=== PATIENT | female | born 1950 | race Caucasian/White ===

== ENCOUNTER 2019-12-15 20:12 | Emergency (ER) | payer MEDICARE, OTHER ==
[2019-12-15 20:21] VITALS: TEMP 98
[2019-12-15] MEDS ORDERED: DIPH,PERTUS(ACELL)TETVAC-LF 0.5 ML VIAL IM ONE (20:58)
--- NOTE | 2019-12-15 21:14 | CT ---
EXAMINATION TYPE: CT brain leydi wo con DATE OF EXAM: 12/15/2019 COMPARISON: None HISTORY: fall CT DLP: 1275.3 mGycm, Automated exposure control for dose reduction was used. CONTRAST: Patient injected with 0 mL of Isovue 300. CT of the brain is performed utilizing 3 mm thick sections through the posterior fossa and 3 mm thick sections through the remaining calvarium. Study is performed within 24 hours of arrival to the hospital. No abnormal hyperdensity is present to suggest an acute intracranial hemorrhage. No mass lesion is evident. No acute infarcts are evident. Ventricles and sulci are appropriate for the patient age. Paranasal sinuses and mastoid air cells within the [id number] are clear. IMPRESSIONS: 1. Normal CT brain. CT cervical spine. COMPARISON: None CT of the cervical spine is performed in the axial plane at 2 mm thick sections. Reconstructed image s in the coronal, and sagittal plane are reviewed on the computer. No acute fractures are evident. There is straightening of the vertebral body alignment in the sagittal plane. Disc heights are preserved. Vertebral body heights are preserved. No spinal canal stenosis is evident. No neural foraminal stenosis is evident. IMPRESSIONS: 1. Acute osseous abnormality cervical spine.
--- NOTE | 2019-12-15 21:15 | XR ---
EXAMINATION TYPE: XR wrist complete RT DATE OF EXAM: 12/15/2019 COMPARISON: None HISTORY: Fall TECHNIQUE: Three-view right wrist FINDINGS: There is an oblique fracture of the distal metaphyseal radius. Anterior angulation of the distal fracture fragment is evident. There may be some dislocation from th e ulna. Note is made of some degenerative changes at the first carpal metacarpal junction. Fracture of osseou s spurring is not excluded at this level IMPRESSION: 1. Oblique fracture of the distal metaphyseal radius with anterior angulation of the distal fracture fragment. 2. Small avulsion from the trapezium at the first carpal metacarpal junction may be present.
--- NOTE | 2019-12-15 21:16 | XR ---
EXAMINATION TYPE: XR hand complete RT DATE OF EXAM: 12/15/2019 COMPARISON: None HISTORY: Fall TECHNIQUE: Three-view right hand FINDINGS: Mild narrowing of the joint spaces of the digits may be present. Acute fractures within the hand are not identified. Previously described avulsion from the trapezium at the base of the thumb and the oblique fracture of the distal metaphyseal radius with anterior angulation of the distal fracture fragment is again evid ent. Please also see wrist dictation same date. IMPRESSION: 1. The hand appears intact. 2. Suspected avulsion at the trapezium. 3. Oblique fracture distal metaphyseal radius with angulation.
[2019-12-15 21:28] VITALS: BP 101/57; PULSE 82; RESP 16
[2019-12-15] MEDS ORDERED: ACETAMINOPHEN TAB 500 MG TAB PO STA (21:31)
--- NOTE | 2019-12-15 22:59 | XR ---
EXAMINATION TYPE: XR forearm RT DATE OF EXAM: 12/15/2019 COMPARISON: Today HISTORY: Post reduction TECHNIQUE: 2 views FINDINGS: 2 views were obtained through the cast that show transverse fracture distal radial metaphys is. There is posterior angulation on the lateral view. There is improved anatomic position of the fra gments compared to initial exam. The carpal bones appear intact. IMPRESSION: There is some reduction of the distal radius fracture compared to initial exam.
--- NOTE | 2019-12-15 23:11 | ED ---
General Adult HPI - General Chief complaint: Fall Stated complaint: Fall Time Seen by Provider: 12/15/19 20:25 Source: patient, RN notes reviewed, old records reviewed Mode of arrival: ambulatory Limitations: no limitations - History of Present Illness Initial comments: 69-year-old female patient presents to ED for evaluation of mechanical fall. Patient reports that she was drinking, fell forward on outstretched arm. She complaint is right arm pain. Patient works that she scraped her nose with denies any significant trauma to the head. Denies use of neck pain. Denies any abdominal pain. Denies use of blood thinners. Denies any other complaints. Systemic: Pt denies fatigue, fever/chills, rash. Pt denies weakness, night sw eats, weight loss. Neuro: Pt denies headache, visual disturbances, syncope or pre-syncope. HEENT: Pt denies ocular discharge or irritation, otalgia, rhinorrhea, pharyngitis or notable lymphadenopathy. Cardiopulmonary: Pt denies chest pain, SOB, heart palpitations, dyspnea on exertion. Abdominal/GI: Pt denies abdominal pain, n/v/d. : Pt denies dysuria, burning w/ urination, frequency/urgency. Denies new onset urinary or bowel incontinence. MSK: Pt denies myalgia, loss of strength or function in extremities. Neuro: Pt denies new onset weakness, paresthesias. - Related Data Allergies Allergy/AdvReac Type Severity Reaction Status Date / Time No Known Allergies Allergy Verified 12/15/19 20:20 Review of Systems ROS Statement: Those systems with pertinent positive or pertinent negative responses have been documented in the HPI. ROS Other: All systems not noted in ROS Statement are negative. Past Medical History Past Medical History: No Reported History History of Any Multi-Drug Resistant Organisms: None Reported Past Surgical History: No Surgical Hx Reported Past Psychological History: No Psychological Hx Reported Smoking Status: Former smoker Past Alcohol Use History: Daily, Heavy Past Drug Use History: None Reported General Exam - General Exam Comments Initial Comments: Constitutional: NAD, AOX3, Pt has pleasant affect. HEENT: NC/AT, trachea midline, neck supple, no lymphadenopathy. External ears appear normal, without discharge. Mucous membranes moist. Eyes PERRLA, EOM intact. There is no scleral icterus. No pallor noted. Cardiopulmonary: RRR, no murmurs, rubs or gallops, no JVD noted. Lungs CTAB in anterior and posterior davis. No peripheral edema. Abdominal exam: Abdomen soft and non-distended. Abdomen non-tender to palpation in all 4 quadrants. Bowel sounds active in LLQ. No hepatosplenomegaly. No ecchymosis Neuro: CN II-XII intact. No nuchal rigidity. No raccon eyes, no foster sign, no hemotympanum. No cervical spinal tenderness. MSK: Mild tenderness to right distal radius. Mild dorsal deformity. The pulse +2. Sensation intact. Superficial laceration to dorsal aspect of hand. Full active range of motion of fingers. Sensation intact in fingers. All extremities palpated, no other tenderness or trauma noted. Limitations: no limitations Course Vital Signs 12/15/19 12/15/19 20:18 21:27 Temperature 98 F Pulse Rate 86 82 Respiratory 18 16 Rate Blood Pressure 95/63 101/57 O2 Sat by Pulse 98 97 Oximetry Medical Decision Making - Medical Decision Making 69-year-old female patient presents to ED for evaluation of mechanical fall. Patient reports that she was drinking, fell forward on outstretched arm. She complaint is right arm pain. Patient works that she scraped her nose with denies any significant trauma to the head. Denies use of neck pain. Denies any abdominal pain. Denies use of blood thinners. Denies any other complaints. Pt VSS, afebrile. Physical exam displayed: Mild tnderness to right distal radius. Mild deformity. Radial pulse +2. She was placed in the finger traps with some improvement in an, positioning. Patient was placed in a sugar tong splint. Patient will be discharged with outpatient orthopedic follow-up and return precautions. Case discussed with Dr. Green. Disposition Clinical Impression: Distal radius fracture, Hand fracture Disposition: HOME SELF-CARE Condition: Stable Instructions (If sedation given, give patient instructions): Wrist Fracture in Adults (ED) Additional Instructions: Follow up with PCP and orthopedic consult tomorrow. Continue to wear split. Return to ED with any worsening symptoms. Is patient prescribed a controlled substance at d/c from ED?: No Referrals: Tresa Rodriges MD [Primary Care Provider] - 1-2 days Grabiel Siu DO [Medical Doctor] - 1-2 days
== END 2019-12-15 23:32 | disposition home or self-care (01) ==
LOC: EC 20:12
DX: S52.501A Unspecified fracture of the lower end of right radius, initial encounter for closed fracture (principal); S00.31XA Abrasion of nose, initial encounter; Z23 Encounter for immunization; Z87.891 Personal history of nicotine dependence; W01.0XXA Fall on same level from slipping, tripping and stumbling without subsequent striking against object, initial encounter; Y93.01 Activity, walking, marching and hiking
CPT/HCPCS: 70450; 72125; 90471; 90715; 99284

== ENCOUNTER 2019-12-21 11:38 | Day surgery (SDC) | payer MEDICARE ==
[~2019-12-21 11:38] MED LIST: DEXAMETHASONE SOD PHOSPHATE 4 MG/ML 1 ML VIAL IV ONE; HYDROmorphone 0.5 MG/0.5 ML SYRINGE IVP PRN; LACTATED RINGERS 1,000 ML IV SCH; ONDANSETRON 4 MG/2 ML VIAL IVP ONE
[2019-12-21 12:01] VITALS: TEMP 98.3
[2019-12-21] MEDS ORDERED: LIDOCAINE 1% (10MG/ML) FOR IV START INTRADERMA ONE (12:25)
[2019-12-21] MEDS ORDERED: MIDAZOLAM 2 MG/2 ML VIAL IV ONE (12:52)
--- NOTE | 2019-12-21 13:18 | P.ANPRN ---
Procedure Note - Anesthesia - Nerve Block Performed Right Axillary Single Time Out Performed: Yes Date of Procedure: 12/21/19 Procedure Start Time: 12:51 Procedure Stop Time: 13:00 Location of Patient: PreOp Indication: Acute Post-Operative Pain, Requested by Surgeon Sedation Type: Sedate with meaningful contact maintained Preparation: Sterile Prep Position: Supine Catheter: None Needle Types: Pajunk Needle Gauge: 21 Ultrasound used to visualize needle placement: Yes Ultrasound used to observe medication spread: Yes Injectate: Other (see comment) (20 ml plus lidicaine 1% with epi 1/200,000 10 ml) Blood Aspirated: No Pain Paresthesia on Injection Noted: No Resistance on Injection: Normal Image Stored and Saved: Yes Events: Uneventful and Well Tolerated
[2019-12-21] MEDS ORDERED: PHENYLEPHRINE-0.9% NACL SYG 1 MG/10 ML SYRINGE ONE (14:27)
[2019-12-21] MEDS ORDERED: fentaNYL (PF) 50 MCG/ML 2 ML AMP ONE (14:27)
[2019-12-21] MEDS ORDERED: KETAMINE 10 MG/ML 20 ML VIAL ONE (14:27)
[2019-12-21] MEDS ORDERED: PROPOFOL 10 MG/ML 20 ML VIAL IV ONE (14:27)
[2019-12-21] MEDS ORDERED: MIDAZOLAM 2 MG/2 ML VIAL ONE (14:27)
[2019-12-21] MEDS ORDERED: LIDOCAINE 1%-EPI 1:100,000 20 ML VIAL SQ ONE ×3 (15:11→17:32)
[2019-12-21] MEDS ORDERED: LACTATED RINGERS 1,000 ML IV ONE (16:52)
[2019-12-21 18:20] VITALS: BP 127/84; PULSE 85; RESP 16
--- NOTE | 2019-12-22 15:17 | FL ---
EXAMINATION TYPE: FL guidance operating room, XR wrist limited RT DATE OF EXAM: 12/21/2019 CLINICAL HISTORY: ORIF right wrist TECHNIQUE: Fluoroscopy. COMPARISON: None. FINDINGS: Fluoroscopic guidance was provided during procedure for performing physician. A total of 2 minute 58 seconds of fluoroscopic time was utilized during the procedure and 5 spot images was acqu ired. IMPRESSION: As Above.
--- NOTE | 2019-12-25 15:01 | P.OP ---
Date of Procedure: 12/21/19 Preoperative Diagnosis: Displaced right distal radius fracture Postoperative Diagnosis: Displaced intra-articular right distal radius fracture Procedure(s) Performed: Open reduction and internal fixation of displaced intra-articular right distal radius fracture (3 fragments: CPT 19485) Implants: Acumed Acu-Loc 2 volar distal radius plate (right, narrow) with locking and cortical screws Anesthesia: HANANEA, lawanda Surgeon: Grabiel Siu Compensation Vice President #1: Dodie Morales Estimated Blood Loss (ml): 20 Condition: stable Disposition: PACU Indications for Procedure: The patient is pleasant 69-year-old female who sustained an injury to her right wrist after a mechanical fall, resulting in a displaced distal radius fracture. Treatment options (along with associated risks and benefits) were discussed in the office. Based on the fracture pattern and degree of displacement, surgical stabilization was recommended in the form of open reduction and internal fixation. The patient expressed understanding and agreed with operative intervention. In preop, additional questions were addressed and the patient wished to proceed with surgery. Consent forms were signed. The surgical site was confirmed and marked preoperatively. Description of Procedure: The patient was administered a regional nerve block by the anesthesia team and was then brought to the operating suite and positioned supine with the operative limb on an arm board. All bony prominences were well-padded. General anesthesia and prophylactic antibiotics were administered uneventfully. A tourniquet was placed on the operative arm, which was then prepped and draped in standard, sterile fashion. A time-out was performed, confirming patient identifiers, the operative side, site and the procedure to be performed: all team members expressed agreement. The limb was exsanguinated with an Esmarch and the tourniquet was inflated. Loupe magnification was used throughout the case for optimum visualization. A volar FCR approach was utilized. A longitudinal skin incision was made, curving gently at the wrist flexion crease. The subcutaneous tissues were divided, coagulating superficial vessels as needed. The radial artery was identified and protected throughout the case. The FCR sheath was released and the tendon was mobilized. The floor of the sheath was incised. Blunt & spreading dissection was used to develop Paronas space and expose the pronator quadratus. A small traumatic disruption was noted near the base of the radial styloid. The pronator was sharply released along its radial border & subperiosteally elevated ulnarly. The fracture site was visualized. The undulating fracture line extended obliquely across the metaphysis and into the DRUJ at proximal corner of the sigmoid notch, with a small, displaced butterfly fragment of the intermediate column metaphysis. A Purvi-Kleinert elevator was used to gently release and mobilize the fracture fragments, taking care to protect the extensor tendons and preserve the soft tissue attachments to the separate metaphyseal fragment. The fracture was manually reduced, using a combination of axial traction and ulnar deviation. Once reduction was confirmed on imaging, a 0.062 K-wire was introduced percutaneously into the radial styloid and advanced into the metaphysis for provisional fixation. Factoring in the patients anatomy and specific fracture pattern, a plate was selected and provisionally pinned in place with K-wires. Repeat imaging demonstrated recurrent loss of radial length. The distal K wires securing the plate were removed. The K wire in the styloid was backed out and the fracture was remanipulated, using the plate as a reduction tool. Residual radial translation of the distal fragment remained. A reduction clamp was inserted through the wound to reduce the radial styloid. Improved alignment was confirmed with imaging. The percutaneous K wire was driven back into the metaphysis (with a different trajectory) and the distal K wires were reinserted through the plate. Repeat imaging showed improved alignment on orthogonal images. A cortical screw was drilled, measured and inserted into the oblong hole of the plate. Position of the plate was then adjusted until satisfactory. Locking screws were then sequentially drilled, measured and inserted distally, confirming length and trajectory with fluoroscopy. A paucity of metaphyseal bone (particularly dorsally) was noted while drilling and measuring screw length. The provisional K-wires were removed. An additional cortical screw was drilled and inserted to further secure the plate to the metaphysis, achieving excellent purchase. The percutaneous K wire was removed. Final x-rays were obtained, including a 20 inclined lateral view, confirming extra-articular screw placement. The wrist was then ranged under live fluoroscopy - no motion of the fracture fragments or fixation construct was appreciated. The tourniquet was released and good hemostasis was obtained with manual pressure and electrocautery. The wound was thoroughly irrigated with normal saline. The pronator was loosely repaired over the plate with interrupted 2-0 Vicryl sutures. The subcutaneous tissues were reapproximated with interrupted 3- 0 Vicryl sutures. The incision was closed with 4-0 nylon sutures. Local anesthetic with epinephrine was injected into the perioperative subcutaneous tissues for adjunct postoperative pain control and hemostasis. A sterile dressing was applied, followed by a resting volar plaster splint. All sponge, needle and instrument counts were correct at the end of the case. The patient tolerated the procedure well and was taken to the recovery room in stable condition.
== END 2019-12-21 18:20 | disposition home or self-care (01) ==
LOC: OR 11:38
PROVIDERS: ATTEND Orthopaedic Surgery
DX: S52.551A Other extraarticular fracture of lower end of right radius, initial encounter for closed fracture (principal); S60.511A Abrasion of right hand, initial encounter; I10 Essential (primary) hypertension; E03.9 Hypothyroidism, unspecified; E78.5 Hyperlipidemia, unspecified; Z79.899 Other long term (current) drug therapy; Z79.1 Long term (current) use of non-steroidal anti-inflammatories (NSAID); Z85.3 Personal history of malignant neoplasm of breast; Z98.890 Other specified postprocedural states; Z87.891 Personal history of nicotine dependence; Z87.81 Personal history of (healed) traumatic fracture; Z97.2 Presence of dental prosthetic device (complete) (partial); Z88.8 Allergy status to other drugs, medicaments and biological substances; Z88.7 Allergy status to serum and vaccine; Z79.890 Hormone replacement therapy; Z82.49 Family history of ischemic heart disease and other diseases of the circulatory system; W01.0XXA Fall on same level from slipping, tripping and stumbling without subsequent striking against object, initial encounter; Y92.480 Sidewalk as the place of occurrence of the external cause
CPT/HCPCS: 25609; 25606; 64417; 76942; 84132; 73100; C1713 ×2; J2250; J1100; J0690; J2405; J3010; J2370; J2704

== ENCOUNTER → 2020-01-03 | Outpatient (CLI) | payer MEDICARE ==
--- NOTE | 2020-01-03 15:57 | FL ---
EXAMINATION TYPE: FL barium enema DATE OF EXAM: 01/03/2020 COMPARISON: None HISTORY: Incomplete colonoscopy TECHNIQUE: Double air-contrast technique is utilized to evaluate the colon. Multiple fluoroscopic spo t images and overhead radiographs were obtained. Postevacuation film was obtained. FINDINGS: [employer] view for abdominal films obtained and felt to be noncontributory. Lower GI:There is marked redundancy of the sigmoid colon extending above the level of the transverse colon looping back into the pelvis to connect to the descending colon. There is extensive diverticulo sis throughout the visualized colon. There was some difficulty refluxing into the ascending colon reg ion with the redundancy within the ascending colon. Reflux into the appendix however was identified d uring the exam. No suspicious filling defects or circumferential areas of narrowing are evident. There is a normal postevacuation auditory response IMPRESSION: 1. Extensive diverticulosis without acute diverticulitis. 2. Redundancy within the ascending colon and within the sigmoid colon regions. Milder redundancy is w ithin the transverse colon.
== END | disposition home or self-care (01) ==
LOC: RADFLMAIN 12:02
PROVIDERS: ATTEND Surgery
DX: Z53.9 Procedure and treatment not carried out, unspecified reason (principal)
CPT/HCPCS: 74270